=== PATIENT | male | born 2000 | race Caucasian/White ===

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

== ENCOUNTER 2018-11-13 21:44 | Emergency (ER) | payer BC, MEDICAID ==
--- OUTSIDE RECORDS SUMMARY | 2018-11-13 21:55 | XMS REPORT | Continuity of Care Document ---
:2000 External Reference #:[id number] Author Name Andres Franz M.D. Address [address] [place] [address] Care Team Providers Name Role Phone Augustin Ball M.D. Care Team Information Quality Assurance Auditor Unavailable Augustin Ball M.D. 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[employer], construction Tobacco Use Start: Unknown Never Smoked Cigarettes Tobacco Use Start: Unknown Never Smoked Cigars Tobacco Use Start: Unknown Never Smoked A Pipe Smokeless Tobacco Never Used Smokeless Tobacco ETOH Use Does not drink alcohol Tobacco Use Start: Unknown Patient has never smoked Smoking Status Reviewed: 10/18/18 Patient has never smoked Allergies, Adverse Reactions, Alerts Description No Known Drug Allergies Medications Medication Date Status Form Strength Qnty SIG Indications Ordering Provider Proair HFA / Active Aerosol 108(90Bas Unknown 0000 e) mcg/Act Epinephrine 00/ Active Solution 0.3mg/0.3 Inject 1 Syrnige Unknown 0000 Auto-Inje ML Intramuscularly ct as Needed Following Severe Allergic Reaction Vitamin D / Active Tablets 1000Unit as directed Unknown 0000 Immunizations Description No Information Available Vital Signs Date Vital Result Comment 2018 10:57am Weight 138.00 lb Weight 62.597 kg Height 70 inches 5'10" Height in cm's 177.8 cm BMI (Body Mass Index) 19.8 kg/m2 Body Mass Index Percentile 10 % Results Description No Information Available Procedures Description No Information Available Encounters Type Date Location Provider Dx Diagnosis Office Visit 2018 Luis,After Andres Gold J35.8 Other chronic 10:45a 10/05/07 Vandana Franz diseases of tonsils and adenoids Plan of Treatment 2018 - Andres Franz M.D.J35.8 Other chronic diseases of tonsils and adenoidsComments:The patient is developing tonsilloliths. We discussed that this is debris build-up from the colonization of the tonsils with bacteria. It is a natural process that can be very annoying. They can be removed with a pick. Otherwise tonsillectomy is needed. I recommend ~B_ tonsillectomy~b_. We discussedthe surgery and postoperative course. Postoperative symptoms include throat pain, phlegm, bad breath, fluctuating fevers and ear pain. The primary risk of surgery is bleeding. He goes to [facility] and is thinking about surgery this Summer. I have given him a couple of picks.
--- NOTE | 2018-11-14 00:44 | ED ---
Upper Extremity Pain - HPI Summary HPI Summary: 18 year old male presents with right hand injury today. He states he fell and ended up punching the ground. has pain over 5th metacarpel Edema noted to the area. No numbness or tingling. No previous fracture to the area. He is right- handed. 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 Has no medical conditions. Denies any other injury. - History of Current Complaint Chief Complaint: EDExtremityUpper Stated Complaint: RT HAND INJURY Time Seen by Provider: 11/14/18 00:17 - Allergies/Home Medications Allergies/Adverse Reactions: Allergies Allergy/AdvReac Type Severity Reaction Status Date / Time MS Bee Venom [Bee Venom] Allergy Severe Difficulty Verified 11/13/18 21:49 Breathing Home Medications: Home Medications NK [No Home Medications Reported] 11/14/18 [History Confirmed 11/14/18] PMH/Surg Hx/FS Hx/Imm Hx Endocrine/Hematology History: Denies: Hx Anticoagulant Therapy, Hx Blood Disorders, Other Endocrine/ Hematological Disorders Cardiovascular History: Denies: Other Cardiovascular Problems/Disorders Respiratory History: Denies: Other Respiratory Problems/Disorders GI History: Denies: Other GI Disorders History: Denies: Other Problems/Disorders Musculoskeletal History: Reports: Other Musculoskeletal History - osteopenia; 11 fractures Sensory History: Denies: Other Sensory Impairments Opthamlomology History: Denies: Other Sensory Impairments Neurological History: Denies: Other Neuro Impairments/Disorders Psychiatric History: Denies: Other Psychiatric Issues/Disorders - Surgical History Surgery Procedure, Year, and Place: R elbow fx w/ surg. L wrist fx w/ surg. L ankle fx w/ surg Infectious Disease History: No Infectious Disease History: Denies: Traveled Outside the [place] in Last 30 Days - Family History Known Family History: Positive: None - Social History Alcohol Use: None Hx Substance Use: No Substance Use Type: Reports: None Hx Tobacco Use: No Smoking Status (MU): Never Smoked Tobacco Review of Systems Negative: Fever Negative: Chest Pain Negative: Shortness Of Breath Positive: Myalgia - right hand pain All Other Systems Reviewed And Are Negative: Yes Physical Exam Triage Information Reviewed: Yes Vital Signs On Initial Exam: Initial Vitals Temp Pulse Resp BP Pulse Ox 98.9 F 65 16 137/54 98 11/13/18 21:48 11/13/18 21:48 11/13/18 21:48 11/13/18 21:48 11/13/18 21:48 Vital Signs Reviewed: Yes Appearance: Positive: Well-Appearing Skin: Positive: Warm, Dry Head/Face: Positive: Normal Head/Face Inspection Eyes: Positive: Normal, Conjunctiva Clear ENT: Positive: Pharynx normal Respiratory/Lung Sounds: Positive: Clear to Auscultation, Breath Sounds Present Cardiovascular: Positive: Normal, RRR Musculoskeletal: Positive: Strength/ROM Intact - right hand, Other - tenderness right 5th metacarpal, good pulses, sensation grossly intact. capillary refill<2 secs Neurological: Positive: Normal Psychiatric: Positive: Normal Procedures - Splinting hand Location: right hand Hand-Made Type: orthoglass Splint: ulnar Pre-Proc Neuro Vasc Exam: normal Post-Proc Neuro Vasc Exam: normal Diagnostics - Vital Signs Vital Signs Temp Pulse Resp BP Pulse Ox 11/14/18 00:20 56 99 11/14/18 00:18 53 139/68 100 11/14/18 00:00 97.9 F 58 16 108/70 100 11/13/18 21:48 98.9 F 65 16 137/54 98 - Laboratory Lab Statement: Any lab studies that have been ordered have been reviewed, and results considered in the medical decision making process. - Radiology hand Radiology Interpretation Completed By: ED Physician Summary of Radiographic Findings: 5th metacarpel fracture Course/Dx - Course Course Of Treatment: 18 year old male presents with right hand injury today. He states he fell and ended up punching the ground. has pain over 5th metacarpel Edema noted to the area. No numbness or tingling. No previous fracture to the area. He is right-handed. 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 Has no medical conditions. Denies any other injury. On exam has edema noted to the metacarpal. Neurovascular intact. X-ray shows fracture of the fifth metacarpal. Placed ulnar gutter splint. Told to follow-up ortho. Told to practice rice. Patient understands agrees with plan. - Diagnoses Differential Diagnosis/HQI/PQRI: Positive: Fracture (Closed), Strain, Sprain Provider Diagnoses: Closed fracture of 5th metacarpal Discharge - Sign-Out/Discharge Documenting (check all that apply): Patient Departure Patient Received Moderate/Deep Sedation with Procedure: No - Discharge Plan Condition: Good Disposition: HOME Patient Education Materials: Hand Fracture (ED) Referrals: Micah Ball MD [Primary Care Provider] - Tesfaye Persaud MD [Medical Doctor] - Additional Instructions: Keep splint on area and keep dry Call ortho office to set up appointment for follow up Use ibuprofen or tyenlol for pain every 6 hours Ice, elevate Return to ED if develop any new or worsening symptoms - Billing Disposition and Condition Condition: GOOD Disposition: Home
[2018-11-14 00:58] VITALS: BP 124/65
== END 2018-11-14 00:55 | disposition home or self-care (01) ==
LOC: ED 21:44
DX: S62.306A Unspecified fracture of fifth metacarpal bone, right hand, initial encounter for closed fracture (principal); W19.XXXA Unspecified fall, initial encounter; Y92.9 Unspecified place or not applicable
CPT/HCPCS: 99282

== ENCOUNTER 2018-12-28 20:41 | Emergency (ER) | payer BC, MEDICAID ==
[2018-12-28 21:12] VITALS: BP 117/75
--- NOTE | 2018-12-28 21:18 | UC ---
Skin Complaint HPI - HPI Summary HPI Summary: 18 yo male presents with concerns about a possible infection to his tongue ring. He tells me that that 2 days ago he had his tongue pierced at a local shop. He went with two of his friends who, apparently, were seen by a provider and told their piercing was infected and placed on anbx. Pt is concerned that his is infected. He has had mild pain since the piercing took place. He denies fever. He is eating and drinking without difficulty and with little pain. - History of Current Complaint Chief Complaint: UCSkin Time Seen by Provider: 12/28/18 21:18 Stated Complaint: TONGUE PIERCING INFECTION Hx Obtained From: Patient Onset/Duration: Gradual Onset Onset Severity: Mild Current Severity: Mild Pain Intensity: 3 Pain Scale Used: 0-10 Numeric - Allergy/Home Medications Allergies/Adverse Reactions: Allergies Allergy/AdvReac Type Severity Reaction Status Date / Time MS Bee Venom [Bee Venom] Allergy Severe Difficulty Verified 11/13/18 21:49 Breathing bee venom protein (honey bee) Allergy Intermediate Difficulty Verified 12/28/18 21:13 Breathing Home Medications: Home Medications Cholecalciferol TAB* [Vitamin D TAB*] 1,000 mg PO DAILY WITH MEAL 12/28/18 [ History Confirmed 12/28/18] PMH/Surg Hx/FS Hx/Imm Hx - Additional Past Medical History Additional PMH: None Other History Of: Negative For: Anticoagulant Therapy - Surgical History Surgical History: Yes Surgery Procedure, Year, and Place: R elbow fx w/ surg. L wrist fx w/ surg. L ankle fx w/ surg - Family History Known Family History: Positive: None - Social History Occupation: Student Lives: Dormitory/Roommates Alcohol Use: None Substance Use Type: None Smoking Status (MU): Light Every Day Tobacco Smoker Type: eCigarettes - Immunization History Most Recent Influenza Vaccination: none Review of Systems All Other Systems Reviewed And Are Negative: Yes Constitutional: Positive: Negative Skin: Positive: Negative Eyes: Positive: Negative ENT: Positive: Other - Tongue piercing pain Respiratory: Positive: Negative Cardiovascular: Positive: Negative Neurological: Positive: Negative Psychological: Positive: Negative Physical Exam - Summary Physical Exam Summary: GENERAL: NAD. WDWN. No pain distress. SKIN:No streaking, bleeding, or drainage. NECK: Supple. Nontender. No lymphadenopathy. HEENT: Mouth: Tongue with piercing in place. Mild erythema at piercing site. Mild TTP. No edema or drainage. CHEST: No accessory muscle use. Breathing comfortably and in no distress. CV: Pulses intact. Cap refill <2seconds NEURO: Alert. PSYCH: Age appropriate behavior. Triage Information Reviewed: Yes Vital Signs: Initial Vital Signs Temp 98.7 F 12/28/18 21:07 Pulse 75 12/28/18 21:07 Resp 18 12/28/18 21:07 BP 117/75 12/28/18 21:07 Pulse Ox 100 12/28/18 21:07 Vital Signs Reviewed: Yes Course/Dx - Course Course Of Treatment: Discussed with pt that his piercing does not appear to be infected and I suspect his pain is from getting his tongue pierced and this will take time to subside. He prefers to be on anbx at this time to "be safe" and given that his friends apparently have infections. - Diagnoses Provider Diagnosis: Tongue pain Discharge - Sign-Out/Discharge Documenting (check all that apply): Patient Departure All imaging exams completed and their final reports reviewed: No Studies - Discharge Plan Condition: Stable Disposition: HOME Prescriptions: Cephalexin CAP* [Keflex CAP*] 500 mg PO BID #10 cap Chlorhexidine MW 0.12% 473ML* [Peridex Mouth Wash 0.12%] 15 ml MT BID #1 btl Referrals: Micah Ball MD [Primary Care Provider] - Additional Instructions: If you develop a fever, shortness of breath, chest pain, new or worsening symptoms - please call your PCP or go to the ED. - Billing Disposition and Condition Condition: STABLE Disposition: Home
== END 2018-12-28 21:30 | disposition home or self-care (01) ==
LOC: UCEAST 20:41
DX: K14.6 Glossodynia (principal); F17.290 Nicotine dependence, other tobacco product, uncomplicated; Z91.030 Bee allergy status
CPT/HCPCS: 99212; G0463

== ENCOUNTER 2019-05-09 21:00 | Emergency (ER) | payer BC, MEDICAID ==
[2019-05-09 21:22] VITALS: BP 110/68
[2019-05-09] MEDS ORDERED: predniSONE TAB* 20 MG PO ONE (21:29)
[2019-05-09] MEDS ORDERED: Famotidine TAB* 20 MG PO ONE (21:29)
--- NOTE | 2019-05-09 21:30 | UC ---
Skin Complaint HPI - HPI Summary HPI Summary: left second toe stung by a bee 3.5 hours ago took Benadryl----has had allergic reactions to bee stings in the past----currently toe is red and swollen--- atient repost abut 1/3 of foot was also red and now that has resolved - History of Current Complaint Chief Complaint: UCAllergicReaction Time Seen by Provider: 05/09/19 21:24 Stated Complaint: BEE STING Hx Obtained From: Patient Onset/Duration: Sudden Onset, Lasting Hours - 3.5, Still Present Skin Exposure Onset/Duration: Hours Ago - 3.5 Timing: Constant Pain Intensity: 4 Pain Scale Used: 0-10 Numeric Location: Discrete - left 2nd toe Character: Swelling, Redness Aggravating Factor(s): Nothing Alleviating Factor(s): Antihistamines Associated Signs & Symptoms: Positive: Negative Related History: Insect Bite/Sting - Allergy/Home Medications Allergies/Adverse Reactions: Allergies Allergy/AdvReac Type Severity Reaction Status Date / Time MS Bee Venom [Bee Venom] Allergy Severe Difficulty Verified 05/09/19 21:22 Breathing bee venom protein (honey bee) Allergy Intermediate Difficulty Verified 05/09/19 21:22 Breathing Home Medications: Home Medications EPINEPHrine [Epipen] 0.3 mg IM ONCE PRN 05/09/19 [History Confirmed 05/09/19] PMH/Surg Hx/FS Hx/Imm Hx Previously Healthy: Yes Other History Of: Negative For: Anticoagulant Therapy - Surgical History Surgical History: Yes Surgery Procedure, Year, and Place: R elbow fx w/ surg. L wrist fx w/ surg. L ankle fx w/ surg - Family History Known Family History: Positive: None - Social History Occupation: Student Lives: With Family Alcohol Use: Occasionally Substance Use Type: None Smoking Status (MU): Light Every Day Tobacco Smoker Type: eCigarettes - Immunization History Most Recent Influenza Vaccination: none Review of Systems All Other Systems Reviewed And Are Negative: Yes Constitutional: Positive: Negative Skin: Positive: Other Eyes: Positive: Drainage - red swollen left great toe ENT: Positive: Negative Respiratory: Positive: Negative Cardiovascular: Positive: Negative Gastrointestinal: Positive: Negative Genitourinary: Positive: Negative Motor: Positive: Negative Neurovascular: Positive: Negative Musculoskeletal: Positive: Negative Neurological: Positive: Negative Psychological: Positive: Negative Is Patient Immunocompromised?: No Physical Exam Triage Information Reviewed: Yes Appearance: Well-Appearing, No Pain Distress, Well-Nourished Vital Signs: Initial Vital Signs Temp 98.0 F 05/09/19 21:16 Pulse 85 05/09/19 21:16 Resp 16 05/09/19 21:16 BP 110/68 05/09/19 21:16 Pulse Ox 100 05/09/19 21:16 Vital Signs Reviewed: Yes Eye Exam: Normal Eyes: Positive: Conjunctiva Clear ENT Exam: Normal ENT: Positive: Normal ENT inspection, Hearing grossly normal, Pharynx normal. Negative: Nasal drainage, Trismus, Muffled voice, Hoarse voice, Sinus tenderness Dental Exam: Normal Neck exam: Normal Neck: Positive: Supple, Nontender, No Lymphadenopathy Respiratory Exam: Normal Respiratory: Positive: Chest non-tender, Lungs clear, Normal breath sounds, No respiratory distress, No accessory muscle use Cardiovascular Exam: Normal Cardiovascular: Positive: RRR, No Murmur, Pulses Normal, Brisk Capillary Refill Musculoskeletal Exam: Normal Musculoskeletal: Positive: Strength Intact, ROM Intact Neurological Exam: Normal Neurological: Positive: Alert, Muscle Tone Normal Psychological Exam: Normal Skin Exam: Normal - sting left 2nd toe, Other Skin: Positive: Other Course/Dx - Course Course Of Treatment: pepcid, prednisone benadryl, ice, elevation follow with pcp prn - Diagnoses Provider Diagnosis: Sting, bee, H/O bee sting allergy Discharge - Sign-Out/Discharge Documenting (check all that apply): Patient Departure All imaging exams completed and their final reports reviewed: No Studies - Discharge Plan Condition: Stable Disposition: HOME Prescriptions: Famotidine TAB 40 MG(NF) [Pepcid TAB 40 MG(NF)] 40 mg PO DAILY #5 tab predniSONE [Prednisone 20 MG TAB] 40 mg PO DAILY 3 Days #6 tablet Patient Education Materials: Diphenhydramine (By mouth), Insect Bite or Sting ( ED), Ice Pack Application (ED) Forms: *Work Release Referrals: Micah Ball MD [Primary Care Provider] - If Needed - Billing Disposition and Condition Condition: STABLE Disposition: Home
== END 2019-05-09 22:00 | disposition home or self-care (01) ==
LOC: UCEAST 21:00
DX: T63.441A Toxic effect of venom of bees, accidental (unintentional), initial encounter (principal); Y92.9 Unspecified place or not applicable; F17.210 Nicotine dependence, cigarettes, uncomplicated
CPT/HCPCS: 99212; A9270-GY; G0463; J7512

== ENCOUNTER 2019-08-13 15:04 | Emergency (ER) | payer BC, MEDICAID ==
[2019-08-13 15:22] VITALS: BP 127/66
--- NOTE | 2019-08-13 15:38 | UC ---
Throat Pain/Nasal Pili HPI - HPI Summary HPI Summary: started with URI symps 4 days ago, saw U/C and strep neg. today ST and nasal pili worse, he has a fever and facial pressure, slight cough took one dose prednisone from home today and is using DayQuil/NyQuil for symptom relief - History of Current Complaint Chief Complaint: UCGeneralIllness Stated Complaint: COUGH , CONGESTION Time Seen by Provider: 08/13/19 15:16 Hx Obtained From: Patient Onset/Duration: Gradual Onset Severity: Worse Since: - this am Pain Intensity: 7 Cough: Nonproductive - slight cough Related History: Seasonal Allergies - Allergies/Home Medications Allergies/Adverse Reactions: Allergies Allergy/AdvReac Type Severity Reaction Status Date / Time bee venom protein (honey bee) Allergy Intermediate Difficulty Verified 08/13/19 15:22 Breathing PMH/Surg Hx/FS Hx/Imm Hx Previously Healthy: Yes Respiratory History: Other - environmental allergies Other History Of: Negative For: Anticoagulant Therapy - Surgical History Surgical History: Yes Surgery Procedure, Year, and Place: R elbow fx w/ surg. L wrist fx w/ surg. L ankle fx w/ surg - Family History Known Family History: Positive: None - Social History Occupation: Employed Full-time Lives: With Family Alcohol Use: Occasionally Substance Use Type: Marijuana Smoking Status (MU): Light Every Day Tobacco Smoker Type: eCigarettes Cessation Counseling: Patient Advised to Stop - Immunization History Most Recent Influenza Vaccination: none Review of Systems All Other Systems Reviewed And Are Negative: Yes Constitutional: Positive: Fever, Fatigue Skin: Positive: Negative. Negative: Rash Eyes: Positive: Negative ENT: Positive: Sore Throat, Sinus Congestion, Sinus Pain/Tenderness, Other - ear fullness Respiratory: Positive: Cough. Negative: Shortness Of Breath Cardiovascular: Positive: Negative. Negative: Chest Pain Gastrointestinal: Positive: Negative Musculoskeletal: Positive: Negative Neurological: Positive: Negative Psychological: Positive: Negative Is Patient Immunocompromised?: No Physical Exam Triage Information Reviewed: Yes Appearance: Well-Appearing, No Pain Distress, Well-Nourished Vital Signs: Initial Vital Signs Temp 100.2 F 08/13/19 15:15 Pulse 90 08/13/19 15:15 Resp 18 08/13/19 15:15 BP 127/66 08/13/19 15:15 Pulse Ox 96 08/13/19 15:15 Vital Signs Reviewed: Yes Eyes: Positive: Conjunctiva Clear ENT: Positive: Pharyngeal erythema - PND, Nasal congestion, TMs normal, Sinus tenderness. Negative: Hoarse voice Neck exam: Normal Neck: Positive: Enlarged Nodes @ - L anterior cervical Respiratory Exam: Normal Respiratory: Positive: Lungs clear Cardiovascular Exam: Normal Cardiovascular: Positive: RRR Musculoskeletal Exam: Normal Neurological Exam: Normal Psychological Exam: Normal Skin Exam: Normal Skin: Negative: Rashes Throat Pain/Nasal Course/Dx - Differential Dx/Diagnosis Differential Diagnosis/HQI/PQRI: Influenza, Mononucleosis, Otitis Media, Sinusitis, Tonsillitis, URI Provider Diagnosis: Sinusitis Discharge ED - Sign-Out/Discharge Documenting (check all that apply): Patient Departure All imaging exams completed and their final reports reviewed: No Studies - Discharge Plan Condition: Good Disposition: HOME Prescriptions: Cefdinir [Cefdinir 300 MG CAP] 300 mg PO BID #20 capsule Patient Education Materials: Sinusitis (ED) Forms: *Work Release Referrals: Micah Ball MD [Primary Care Provider] - 2 Days (if not improving) Additional Instructions: rest and drink plenty of fluids start antibiotic and take as directed stop prednisone ]use DayQuil/NyQuil as directed for symptom relief - Billing Disposition and Condition Condition: GOOD Disposition: Home - Attestation Statements Provider Attestation: Per institutional requirements, I have reviewed the chart, however, I was not consulted specifically or made aware of this patient by the midlevel provider. I did not personally evaluate, interact with , or disposition this patient.
== END 2019-08-13 15:50 | disposition home or self-care (01) ==
LOC: UCEAST 15:04
DX: J32.9 Chronic sinusitis, unspecified (principal); R53.83 Other fatigue; R59.0 Localized enlarged lymph nodes; F17.210 Nicotine dependence, cigarettes, uncomplicated; Z91.030 Bee allergy status
CPT/HCPCS: 99212; G0463